=== PATIENT | male | born 1945 | race Caucasian/White ===

== ENCOUNTER 2019-01-27 07:44 | Emergency (ER) | payer MEDICARE, OTHER ==
[2019-01-27 08:20] VITALS: BP 147/94
--- NOTE | 2019-01-27 09:04 | UC ---
Throat Pain/Nasal [place] HPI - HPI Summary HPI Summary: Pt here with . Progressive frontal ROMERO and pressure on either side of nose. Pt denies much nasal dischage. No fever, chills. mild PND. Pt states constant pressure - worse with leaning forward. Pt states sx improve in shower. No vision changes or eye pain. No rash. States feels sinus pressure "inside" Medications reviewed this visit - History of Current Complaint Chief Complaint: UCGeneralIllness Stated Complaint: HEADACHE Time Seen by Provider: 01/27/19 09:03 Hx Obtained From: Patient, Family/Cigar Head Holer Pain Intensity: 7 - Allergies/Home Medications Allergies/Adverse Reactions: Allergies Allergy/AdvReac Type Severity Reaction Status Date / Time No Known Allergies Allergy Verified 04/28/13 17:16 PMH/Surg Hx/FS Hx/Imm Hx Previously Healthy: Yes Endocrine History: Dyslipidemia - Surgical History Surgical History: Yes Surgery Procedure, Year, and Place: reduction fx humerus, appendix, acl right knee, - Social History Occupation: Unemployed Lives: With Family Alcohol Use: None Substance Use Type: None Smoking Status (MU): Never Smoked Tobacco Review of Systems All Other Systems Reviewed And Are Negative: Yes Constitutional: Positive: Fatigue Eyes: Positive: Negative ENT: Positive: Sinus Congestion, Sinus Pain/Tenderness Respiratory: Positive: Negative Neurological: Positive: Headache Physical Exam - Summary Physical Exam Summary: Vital Signs Reviewed: Yes A+Ox3, no distress Eyes: Conjunctiva Clear, NADIRA. EOM intact and full, no photophobia ENT: Hearing grossly normal TM x 2 clear, + TTP max sinus L>R, turbinates inflammed and boggy, no PND, mmoist, uvula midline, no exudate, no erythema Neck: Positive: Supple Respiratory: Positive: No respiratory distress, No accessory muscle use + CTA throughout no w/r Cardiovascular: RRR nl s1, s2 no m/r CBT <2 sec abd soft + BS nt/nd no guarding, no distension Musculoskeletal Exam: BAKER x 4 without difficulty Strength Intact, ROM Intact Neurological: Positive: Alert, + sensation throughout Psychological: Positive: Normal Response To Family Skin: Positive: no rash, no ecchymosis Triage Information Reviewed: Yes Vital Signs: Initial Vital Signs Temp 98.2 F 01/27/19 08:16 Pulse 80 01/27/19 08:16 Resp 16 01/27/19 08:16 BP 147/94 01/27/19 08:16 Pulse Ox 98 01/27/19 08:16 Throat Pain/Nasal Course/Dx - Course Course Of Treatment: Pt with progressive frontal headache and face pressure. Pt denies fevers, chilss VS with mild elevated BP - recommend pCP f/u. pt with exam c/w sinusitis. Rx abx. flonase. humidfy air. hydrate. secretion precaution. return precautions - Differential Dx/Diagnosis Provider Diagnosis: Sinusitis Discharge - Sign-Out/Discharge Documenting (check all that apply): Patient Departure All imaging exams completed and their final reports reviewed: No Studies - Discharge Plan Condition: Stable Disposition: HOME Prescriptions: Amoxicillin PO (*) [Amoxicillin 500 MG CAP*] 500 mg PO Q12H #20 cap Patient Education Materials: Sinusitis (ED) Referrals: Oziel Hernandez MD [Primary Care Provider] - Additional Instructions: - Stay well hydrated. Drink plenty of non-alcoholic, non-caffinated beverages. - Alternate ibuprofen (Advil, Motrin) 600mg and Tylenol every 3 hours for pain or fever. Take with food. Do NOT take for more than 4-5 days. - These infections are spread by secretions - do NOT share eating or drinking utensils - clean items you share with other people such as cell phones, computer mouse, TV remote, computer tablets,etc. Once you have been antibiotics for 2 days, change your toothbrush and your pillowcase. - get plenty of restful sleep - humidify the air in the room where you sleep - boil water, run a hot steam shower, vaporizer, cups of water by heat register - okay to take over the counter decongestant and cough medication - contact your doctor to schedule a follow-up appointment. Contact your doctor or return - Billing Disposition and Condition Condition: STABLE Disposition: Home
== END 2019-01-27 09:36 | disposition home or self-care (01) ==
LOC: UCEAST 07:44
DX: J32.9 Chronic sinusitis, unspecified (principal)
CPT/HCPCS: 99212; G0463